=== PATIENT | male | born 1945 | race Caucasian/White ===

== ENCOUNTER 2025-02-11 12:33 | Emergency (ER) | payer MEDICARE, OTHER ==
[~2025-02-11] VITALS: Ht 188 cm; Wt 132.1 kg
[~2025-02-11 12:33] MED LIST: AMLO5TAB16 PO; ATOR20TA66 PO; LEVO25TA7 PO; METO-395 PO; NYSPWD TP; PANT40TA54 PO
[2025-02-11 12:37] VITALS: TEMP 97.3
--- NOTE | 2025-02-11 12:45 | Physician Documentation ---
History of Present Illness ~ Chief Complaint: Shortness of Breath Stated Complaint: SOB Time Seen by MD: 12:44 Primary Medical Doctor: sean KENNY 79-year-old male who presents with exertional shortness of breath He reports a long history of difficulty breathing. He says over the last 1 month he has had increased exertional shortness of breath, and can walk smaller and smaller distances without stopping to catch his breath. Today it is about 10 ft. He also reports that over the past 2 days he has developed some swelling in his calves. He has no history of edema in the past. He denies any fevers or infectious symptoms. No productive cough. No chest pain. He has an appointment in a couple of weeks with a office rep. He does not want to be admitted to the hospital. He later tells me that he has not taken the metoprolol that was prescribed. He has concerns about the [employer] and possible side effects Medication Reconciliation Allergies: Coded Allergies: No Known Allergies (Unverified , 02/11/25) Scheduled Amlodipine Besylate (Amlodipine Besylate), 1 TAB PO DAILY Atorvastatin Calcium (Atorvastatin Calcium), 40 MG PO DAILY Hydrochlorothiazide (Hydrochlorothiazide), 1 TAB PO DAILY Levothyroxine Sodium (Levothyroxine Sodium), 50 MCG PO DAILY@07 Metoprolol Succinate (Metoprolol Succinate), 25 MG PO DAILY Metoprolol Tartrate (Metoprolol Tartrate), 1 TAB PO Q12H Nystatin (NYSTOP powder), 1 APPLIC TP TID Pantoprazole Sodium (Pantoprazole Sodium), 40 MG PO BKF Scheduled PRN Albuterol Sulfate (Ventolin Hfa), 2 PUFFS INH Q4HPRN PRN for wheezing Past Medical History Past Medical History: Hypertension Patient History: Patient reports no known family medical history. Review of Systems Constitutional: Denies: fever Respiratory: Reports: SOB with exertion Cardiovascular: Denies: chest pain Physical Exam Vital Signs: Temperature: 97.3, Source: Temporal, Heart Rate: 96, Respiratory Rate: 22, BP: 129/73, Pulse Oximetry: 94, Weight: 132.100 Oxygen Flow Rate: 0 Physical Exam General: This is a pleasant older gentleman, not in acute distress, very devon kative, family at bedside HEENT: Atraumatic, oropharynx is moist Heart: Irregular rhythm on auscultation, but appears sinus rhythm on the monitor, normal-appearing peripheral perfusion Lungs: Clear breath sounds bilateral, normal work of breathing, no wheezing or crackles, oxygen saturations in the low 90s on room air. Abdomen: Soft, distended abdomen. No tenderness and no rebound or guarding Extremities: Warm and well-perfused. Mild pitting edema to both calves, no tenderness Neuro: Alert and oriented Psychiatric: Calm and cooperative with exam Progress Results/Orders Results/Orders Orders - JASMIN TYLER MD Chest,Single View (02/11/25 12:41) Monitor (02/11/25 12:41) Saline Lock (02/11/25 12:41) Oxygen (02/11/25 12:41) Hs Troponin I W Calculations (02/11/25 14:41) Hs Troponin I W Calculations (02/11/25 15:41) Completed Orders - JASMIN TYLER MD Chest,Single View (02/11/25 12:41) Cbc/Diff (02/11/25 12:41) BMP (02/11/25 12:41) PBNP (02/11/25 12:41) Electrocardiogram (02/11/25 12:41) Hs Troponin I W Calculations (02/11/25 12:41) Vital Signs 02/11/25 02/11/25 02/11/25 02/11/25 12:37 12:52 13:19 13:30 Temp 97.3 Pulse 96 78 69 Resp 22 19 15 B/P (MAP) 129/73 136/84 (101) 155/91 (112) Pulse Ox 94 94 96 95 O2 Delivery Nasal Cannula* O2 Flow Rate 0 0 2 2.0 FiO2 28 02/11/25 02/11/25 02/11/25 14:00 14:17 14:28 Pulse 84 70 Resp 17 20 16 B/P (MAP) 141/87 (105) 154/102 (119) Pulse Ox 96 94 O2 Flow Rate 2.0 2.0 Laboratory Tests Test 02/11/25 13:10 02/11/25 14:33 White Blood Count 9.6 Red Blood Count 5.28 Hemoglobin 16.5 Hematocrit 48.1 Mean Corpuscular Volume 91.1 Mean Corpuscular Hemoglobin 31.2 H Mean Corpuscular Hemoglobin Concent 34.3 Red Cell Distribution Width 15.2 H Platelet Count 232 Mean Platelet Volume 8.0 Neutrophils (%) (Auto) 77.5 H Lymphocytes (%) (Auto) 12.9 L Monocytes (%) (Auto) 8.0 Eosinophils (%) (Auto) 0.9 Basophils (%) (Auto) 0.7 Neutrophils # (Auto) 7.5 Lymphocytes # (Auto) 1.2 Monocytes # (Auto) 0.8 Eosinophils # (Auto) 0.1 Basophils # (Auto) 0.1 CBC Comment Sodium Level 139 Potassium Level 4.0 Chloride Level 104 Carbon Dioxide Level 25.2 Anion Gap 10 Blood Urea Nitrogen 24 H Creatinine 0.93 Estimated GFR/1.73 m2 79 BUN/Creatinine Ratio 25.8 H Glucose Level 150 H Calcium Level 9.2 Troponin I High Sensitivity 84 *H Pro-B-Type Natriuretic Peptide 39 Albumin 3.6 Chemistry Comments Troponin I High Sens Percent Delta 8 Troponin I Hi Sens Absolute Change -7 Re-Evaluation Re-evaluation : Re-Evaluation Time: 13:17 Progress Ambulation trial: The patient has oxygen saturations in the low 90s with ambulation, but does become significant short of breath and has significant tachycardic with a heart rate up into the 140s. He quickly recovers after he stops and sits down. EKG/XRAY/CT/US/VASC/MRI EKG : Additional Comment I personally interpreted the EKG and this shows: Sinus rhythm, rate 76, QTC 403, no STEMI Chest X-Ray : Additional Comments I personally interpreted the x-ray, and it shows: No focal consolidation, no significant pulmonary edema, no pneumothorax Medical Decision Making Additional information obtaine: old records Findings Reviewed previous records including past admission for heart testing Heart Score: 3 Differential Dx:Considerations: Include: cardiogenic shock, CHF, COPD, dysrhythmia, myocardial infarction, pulmonary embolism, upper resp. infection Additional Infomation The patient presents with exertional shortness of breath, worsening over the past month, as well as leg edema. His EKG does not show ischemic changes. Chest x-ray unremarkable. On chart review it appears he has a recent diagnosis of hypertrophic cardiomyopathy. His laboratory testing shows a slightly elevated troponin, similar to previous values. BNP is normal. He has no other findings to suggest definite congestive heart failure. His recent echocardiogram did not show heart failure. Overall, his presentation seems consistent with hypertrophic cardiomyopathy. Later, I learned that he has not been taking the metoprolol that was prescribed, and this is likely why his symptoms are not improving. He was very concerned about taking metoprolol for various reasons. I had a long shared decision- making conversation with him and discuss the risks and benefits of this and explained why it possibly could help with his breathing and other symptoms. Following this discussion, he was considering taking the metoprolol. He will be given a prescription again for the metoprolol. He also wanted to change his b lood pressure medicine to a diuretic. He will change from amlodipine to low- dose hydrochlorothiazide. He otherwise did not want any further treatments or interventions at this time including admission. He has a follow up appointment with the office rep. He will be discharged with a plan for a medication trial with metoprolol and hydrochlorothiazide, and he will follow up with the office rep for further evaluation, treatment and medication adjustment. Departure Time of Disposition: 14:56 Disposition: 01 HOME / SELF CARE / HOMELESS Impression: Primary Impression: Hypertrophic obstructive cardiomyopathy (HOCM) Additional Impression: Exertional shortness of breath Condition: Stable Discharge Instructions: Hypertrophic Cardiomyopathy Referrals: NO PRIMARY CARE PROVIDER (PCP) Prescriptions Albuterol Sulfate (Ventolin Hfa) 90 Mcg Hfa.aer.ad 2 PUFFS INH Q4HPRN PRN for wheezing for 30 Days, #18 GM 0 Refills Prov: JASMIN TYLER MD 02/11/25 Hydrochlorothiazide (Hydrochlorothiazide) 12.5 Mg Tablet 1 TAB PO DAILY for 30 Days, #30 TAB 0 Refills Prov: JASMIN TYLER MD 02/11/25 Metoprolol Tartrate (Metoprolol Tartrate) 25 Mg Tablet 1 TAB PO Q12H for 30 Days, #60 TAB 0 Refills Prov: JASMIN TYLER MD 02/11/25 Education Educated: Patient, Family Educated regarding: diagnosis, treatment, need for follow up Signature Scribe Signature: wilmar Attestation: JASMIN Rendon MD Feb 11, 2025 12:45
--- NOTE | 2025-02-11 12:45 | ELECTROCARDIOGRAPH REPORT ---
[facility] Test Date: 2025-02-11 Test Time: 12:42:56 Pat Name: NELLIE HSIEH Department: EMERGENCY ROOM Room: Gender: M Parts Administrator: : [id number] Requested By: JASMIN TYLER Order Number: [id number] Reading MD: Dr. Filiberto Salinas Measurements Intervals Lenora Rate: 76 P: 42 AK: 139 QRS: 1 QRSD: 85 T: 29 QT: 358 QTc: 403 Interpretive Statements Sinus rhythm Electronically Signed On 02-13-2025 9:40:[address] Filiberto Salinas Please click the below link to view image of tracing.
--- NOTE | 2025-02-11 13:04 | RADIOLOGY REPORT ---
EXAM: DI CHEST,SINGLE VIEW HISTORY: CP TECHNIQUE: 1 view of the chest COMPARISON: CT CT CHEST on DOS: 12/05/24 FINDINGS/IMPRESSION: LUNGS: Elevation of the righthemidiaphragm with atelectasis. MEDIASTINUM: Unremarkable. BONES: No acute osseous abnormality. OTHER: None.
[2025-02-11 13:34] LABS: MEAN PLATELET VOLUME 8.0 FL (7.4-10.4); RED CELL DISTRIBUTION WIDTH 15.2 % (11.5-14.5)
[2025-02-11 13:59] LABS: CREATININE 0.93 MG/DL (0.60-1.10); PRO BRAIN NATRIURETIC PEPTIDE 39 PG/ML (0-450); TOTAL CARBON DIOXIDE 25.2 MMOL/L (24-32); eCRCL 77 ML/MIN; eGFR 79 ML/MIN
[2025-02-11] MEDS ORDERED: HYDR12.55 PO (14:57)
[2025-02-11] MEDS ORDERED: METO25TA6 PO (14:57)
[2025-02-11] MEDS ORDERED: ALBU18HF2 INH (15:00)
[2025-02-11 15:08] VITALS: BP 130/79; PULSE 76; RESP 16; O2SAT 93
== END 2025-02-11 15:19 | disposition home or self-care (01) ==
LOC: ER 12:34
DX: I42.1 Obstructive hypertrophic cardiomyopathy (principal); R06.02 Shortness of breath; I10 Essential (primary) hypertension; Z79.899 Other long term (current) drug therapy
CPT/HCPCS: 36415; 71045; 80048; 83880; 84484; 85025; 93005; 99285; A4615; J7030